=== PATIENT | female | born 1980 | race Caucasian/White ===

== ENCOUNTER 2018-08-06 21:08 | Emergency (ER) | payer OTHER ==
[~2018-08-06] VITALS: Ht 170.2 cm; Wt 59.9 kg
[2018-08-06] MEDS ORDERED: LORAZEPAM 0.5 MG TABLET PO ONE (21:15)
[2018-08-06] MEDS ORDERED: LORAZEPAM 1 MG TABLET ONE (21:18)
--- NOTE | 2018-08-06 21:20 | NUR ---
Patient bib friend from a group meeting for the c/o chest tightness, dizziness and tingling on left side of body that started 20 minutes [employer]. Pt observed to be hyperventilating and shivering on arrival. VSS. Pt placed on monitor. Safe environment implemented.
[2018-08-06 21:50] VITALS: BP 124/94
--- NOTE | 2018-08-06 21:50 | NUR ---
Patient discharged to home in stable conditon. Written and verbal after care instructions given. Patient verbalizes understanding of instructions. Patient ambulated out of ER with stable gait, in no distress. All belongings taken.
== END 2018-08-06 21:51 | disposition home or self-care (01) ==
LOC: ER 21:08
DX: F41.9 Anxiety disorder, unspecified (principal)
CPT/HCPCS: 93005; A4663